=== PATIENT | female | born 1990 | race Caucasian/White ===

== ENCOUNTER 2020-09-16 11:12 | Outpatient (CLI) | payer BC | END 2020-09-16 11:13 | disposition home or self-care (01) | LOC: BICRAD 11:12 | PROVIDERS: ATTEND Family Medicine | DX: M54.42 Lumbago with sciatica, left side (principal) | CPT/HCPCS: 72100 ==

== ENCOUNTER 2020-09-16 12:17 | Outpatient (CLI) | payer BC | END 2020-09-16 12:18 | disposition home or self-care (01) | LOC: ULT 12:17 | PROVIDERS: ATTEND Family Medicine | DX: B33.24 Viral cardiomyopathy (principal); I34.0 Nonrheumatic mitral (valve) insufficiency | CPT/HCPCS: 93306 ==